=== PATIENT | female | born 1975 | race American Indian/Alaskan Native ===

== ENCOUNTER 2016-11-06 08:42 | Emergency (ER) | payer OTHER ==
[2016-11-06 08:43] VITALS: BMI 28.8
[2016-11-06 08:49] VITALS: O2SAT 100
[2016-11-06 10:00] LABS: BASO # 0.1 K/uL (0.0-0.2); BASO % 0.7 % (0.0-2.0); EOS # 0.5 K/uL (0.0-0.7); EOS % 5.9 % (0.0-4.0); HEMATOCRIT 37.6 % (34.0-47.0); LYMPH # 1.8 K/uL (1.0-4.3); LYMPH % 21.1 % (20.0-40.0); MEAN CELL VOLUME 86.4 fL (81.0-99.0); MEAN CORPUSCULAR HEMOGLOBIN 27.7 pg (27.0-31.0); MEAN PLATELET VOLUME 9.8 fL (7.2-11.7); MONO # 0.4 K/uL (0.0-0.8); RED CELL DISTRIBUTION WIDTH 13.7 % (11.5-14.5); WHITE BLOOD COUNT 8.8 K/uL (4.8-10.8)
[2016-11-06 10:07] LABS: CHLORIDE 102 mmol/L (98-107); POTASSIUM 4.2 mmol/L (3.6-5.2); SODIUM 140 mmol/L (132-148)
[2016-11-06 10:09] LABS: ALB/GLOB RATIO 1.1 (1.0-2.1); ALKALINE PHOSPHATASE 55 U/L (38-126); AST/SGOT 22 U/L (14-36); BILIRUBIN,TOTAL 0.6 mg/dL (0.2-1.3); CARBON DIOXIDE 29 mmol/L (22-30); GFR AFRICAN-AMERICAN > 60; TOTAL PROTEIN 7.5 g/dL (6.3-8.3)
[2016-11-06 10:10] LABS: ALT/SGPT 22 U/L (9-52); BLOOD UREA NITROGEN 10 mg/dL (7-17); CALCIUM 8.4 mg/dl (8.6-10.4); GLUCOSE,RANDOM 90 mg/dL (65-105)
--- NOTE | 2016-11-06 10:25 | C.PDOC ---
History Of Present Illness 41 yr old female with PMHx of bilateral breast pain, presents to the ER with bilateral breast pain for 1 week. Patient states 2 months ago, she was evaluated by breast surgeon who aspirated a cyst and was told she has polycystic breast and this is going to be a ongoing issue. Patient is also complaining of several years of intermittent lower back pain which radiates down to legs and occasionally will radiate to upper back, arms and shoulder. States the back pain is worse when its usually going to rain and is partially relived with ibuprofen. Patient reports she has never talked to her PMD about her issues. Denies fever, weight loss, chest pain, SOB, cough, nausea, vomiting , abdominal pain, dysuria, incontinence, weakness or numbness. Time Seen by Provider: 11/06/16 09:14 Chief Complaint (Nursing): Lower Extremity Problem/Injury History Per: Patient History/Exam Limitations: no limitations Onset/Duration Of Symptoms: Days (1 week) Past Medical History Reviewed: Historical Data, Nursing Documentation, Vital Signs Vital Signs: Last Vital Signs Temp 97.5 F L 11/06/16 11:42 Pulse 72 11/06/16 11:42 Resp 18 11/06/16 11:42 BP 123/83 11/06/16 11:42 Pulse Ox 100 11/06/16 11:42 - Medical History PMH: Back Problems, Migraine Family History: States: Hypertension - Social History Hx Tobacco Use: No Hx Alcohol Use: Yes Hx Substance Use: No - Immunization History Hx Influenza Vaccination: Yes Review Of Systems Except As Marked, All Systems Reviewed And Found Negative. Constitutional: Positive for: Other ((+) Bilateral breast pain ). Negative for : Fever, Weight loss Cardiovascular: Negative for: Chest Pain Respiratory: Negative for: Cough, Shortness of Breath Gastrointestinal: Negative for: Nausea, Vomiting, Abdominal Pain Genitourinary: Negative for: Dysuria, Incontinence Neurological: Negative for: Weakness, Numbness Physical Exam - Physical Exam Appears: Well, Non-toxic, No Acute Distress Skin: Warm, Dry, No Rash Head: Atraumatic, Normacephalic Oral Mucosa: Moist Chest: Symmetrical, No Tenderness, No Ecchymosis Cardiovascular: Rhythm Regular, No Murmur Respiratory: Normal Breath Sounds, No Rales, No Rhonchi, No Stridor, No Wheezing Gastrointestinal/Abdominal: Normal Exam, Soft, No Tenderness, No Guarding, No Rebound Extremity: Normal ROM, No Swelling Neurological/Psych: Oriented x3, Normal Speech, Normal Motor ED Course And Treatment - Laboratory Results Result Diagrams: 11/06/16 09:51 11/06/16 09:51 O2 Sat by Pulse Oximetry: 100 Medical Decision Making Medical Decision Making: PLAN: * CBC * CMP * Motrin PO Labs and sed rate unremarkable Results discussed with pt including need for follow up Disposition - Disposition Referrals: Shea Joshua MD [Staff Provider] - Disposition: HOME/ ROUTINE Disposition Time: 11:18 Condition: GOOD Additional Instructions: Follow up with you PCP for further evaluation Prescriptions: Ibuprofen [Motrin] 1 tab PO QID PRN #30 tab PRN Reason: .Pain or Fever Instructions: Arthralgia (ED), Chronic Back Pain (ED) Forms: Work Excuse - Clinical Impression Clinical Impression: Joint pain, Back pain - Scribe Statement The provider has reviewed the documentation as recorded by the Jodiibe Shabana Carrington Provider Attestation: All medical record entries made by the Jodiibkirby were at my direction and personally dictated by me. I have reviewed the chart and agree that the record accurately reflects my personal performance of the history, physical exam, medical decision making, and the department course for this patient. I have also personally directed, reviewed, and agree with the discharge instructions and disposition.
[2016-11-06 11:43] VITALS: BP 123/83; PULSE 72; RESP 18; TEMP 97.5
== END 2016-11-06 11:43 | disposition home or self-care (01) ==
LOC: C.ER 08:42
DX: M25.50 Pain in unspecified joint (principal); M54.9 Dorsalgia, unspecified

== ENCOUNTER 2016-12-27 22:37 | Emergency (ER) | payer OTHER ==
[2016-12-27 22:37] VITALS: BMI 28.8
--- NOTE | 2016-12-27 22:55 | C.PDOC ---
History Of Present Illness A 41 y/o F c/o right sided back pain that radiates to right leg for 4 days. Notes hx of similar episodes s/p fall 3 years prior- at the time was told "something with my discs". States she "feels it when it starts raining". Same symptoms in the past when diagnosed with sciatica. 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 Denies trauma, urinary/bowel incontinence, change in sensation, or any other complaints. Time Seen by Provider: 12/27/16 22:45 Chief Complaint (Nursing): Back Pain History Per: Patient History/Exam Limitations: no limitations Onset/Duration Of Symptoms: Days (4) Current Symptoms Are (Timing): Still Present Quality Of Discomfort: "Pain" Severity: Mild Previous Symptoms: Prior Injury Exacerbating Factor(s): Other (When it rains) Recent travel outside of the [place]: No Additional History Per: Patient Past Medical History Reviewed: Historical Data, Nursing Documentation, Vital Signs Vital Signs: Last Vital Signs Temp 98 F 12/28/16 00:15 Pulse 80 12/28/16 00:15 Resp 20 12/28/16 00:15 BP 128/72 12/28/16 00:15 Pulse Ox 98 12/28/16 00:49 - Medical History PMH: Back Problems, Migraine Denies: Chronic Kidney Disease Family History: States: Hypertension - Social History Hx Tobacco Use: No Hx Alcohol Use: Yes Hx Substance Use: No - Immunization History Hx Tetanus Toxoid Vaccination: No Hx Influenza Vaccination: Yes Hx Pneumococcal Vaccination: No Review Of Systems Except As Marked, All Systems Reviewed And Found Negative. Genitourinary: Negative for: Dysuria, Frequency, Incontinence, Hematuria Musculoskeletal: Positive for: Back Pain (Right sided), Leg Pain (Right leg, radiation) Physical Exam - Physical Exam Appears: Well, Non-toxic, Other (uncomfortable) Skin: Warm, Dry Head: Atraumatic, Normacephalic Eye(s): bilateral: Normal Inspection, EOMI Nose: Normal Oral Mucosa: Moist Neck: Normal, Normal ROM, Supple Chest: Symmetrical Respiratory: No Accessory Muscle Use Gastrointestinal/Abdominal: Normal Exam, Soft, No Tenderness Back: No CVA Tenderness, No Vertebral Tenderness, Paraspinal Tenderness (Right paralumbar and buttock) Extremity: Normal ROM, Capillary Refill (<2secs), No Deformity Extremity: Bilateral: Atraumatic, Normal Color And Temperature Neurological/Psych: Oriented x3, Normal Speech, Normal Cognition, Normal Motor, Normal Sensation, Other (NO focal deficit) Gait: Steady ED Course And Treatment O2 Sat by Pulse Oximetry: 98 (RA) Pulse Ox Interpretation: Normal Progress Note: Impression: A 41 y/o F c/o right sided back pain that radiates to right leg for 4 days. Plans: Valium, Toradol, Urine, Reassess. Offered XR, pt refused. On re-evaluationm pt is in no acute distress and is improving with the back pain. Patient is resting comfortably, is no longer having back pain, no fever, no bony tenderness, no numbness, no weakness, or abdominal pain. Pt was instructed to follow up with PMD within 1-2 days for further evaluation. Disposition - Disposition Disposition: HOME/ ROUTINE Disposition Time: 23:48 Condition: STABLE Additional Instructions: Follow up with primary medical doctor in 1-3 days without fail for further evaluation. Take medications as prescribed. Return to the emergency department at any time if symptoms persist or worsen. Prescriptions: Cyclobenzaprine [Cyclobenzaprine HCl] 10 mg PO TID #15 tab Naproxen [Naprosyn] 1 tab PO BID PRN #20 tab PRN Reason: Pain Nitrofurantoin Macrocrystals [Macrobid] 1 cap PO BID #10 cap Instructions: Sciatica (ED) Forms: [facility] (Azeri) - Clinical Impression Clinical Impression: Sciatica - Scribe Statement The provider has reviewed the documentation as recorded by the Scribe Yesica fritz All medical record entries made by the Jodiibkirby were at my direction and personally dictated by me. I have reviewed the chart and agree that the record accurately reflects my personal performance of the history, physical exam, medical decision making, and the department course for this patient. I have also personally directed, reviewed, and agree with the discharge instructions and disposition.
[2016-12-27 22:58] VITALS: PULSE 80; RESP 20; TEMP 98
[2016-12-27 23:44] LABS: RBC URINE 4 /hpf (0-3); URINE BILIRUBIN NEGATIVE (NEGATIVE); URINE BLOOD NEGATIVE (NEGATIVE); URINE COLOR Yellow (YELLOW); URINE GLUCOSE (UA) NORMAL (Normal); URINE KETONE NEGATIVE (NEGATIVE); URINE LEUKOCYTE ESTERASE 1+ Leu/uL (Negative); URINE PROTEIN NEGATIVE (NEGATIVE); URINE UROBILINOGEN NORMAL mg/dL (0.2-1.0); WBC URINE 11 /hpf (0-5)
[2016-12-28 00:16] VITALS: BP 128/72
[2016-12-28 00:31] VITALS: O2SAT 98
== END 2016-12-28 00:15 | disposition home or self-care (01) ==
LOC: C.ER 22:37
DX: M54.41 Lumbago with sciatica, right side (principal)
CPT/HCPCS: 81001; 84703; 87086; 96372; 99282; J1885

== ENCOUNTER 2017-05-09 00:13 | Emergency (ER) | payer OTHER ==
[2017-05-09 00:13] VITALS: BMI 28.8
[2017-05-09 00:20] VITALS: RESP 18; O2SAT 100
[2017-05-09] MEDS ORDERED: Aspirin 325 mg EC Tablets PO STA (01:01)
--- NOTE | 2017-05-09 01:01 | C.PDOC ---
History Of Present Illness Pt complaining of worsening chest pain over the last 2-3 days. No f/c/n/v. Has had a non productive cough. Pain, which is sharp and reproducible, worsens with deep inspiration, movement and palpations. Speaking in complete sentences, Time Seen by Provider: 05/09/17 00:41 Chief Complaint (Nursing): Chest Pain History Per: Patient History/Exam Limitations: no limitations Onset/Duration Of Symptoms: Days (2) Current Symptoms Are (Timing): Still Present Context: Other Severity: Moderate Pain Scale Rating Of: 5 Quality: Sharp, "Pain" Associated Symptoms: denies: Nausea, Dyspnea Exacerbating Factors: Movement, Deep Breathing Alleviating Factors: None Recent travel outside of the [place]: No Additional History Per: Patient Past Medical History Reviewed: Historical Data, Nursing Documentation, Vital Signs Vital Signs: Last Vital Signs Temp 98 F 05/09/17 00:16 Pulse 102 H 05/09/17 00:16 Resp 18 05/09/17 00:16 BP 135/85 05/09/17 00:16 Pulse Ox 100 05/09/17 01:17 - Medical History PMH: Back Problems, Migraine Denies: Chronic Kidney Disease Family History: States: No Known Family Hx, Hypertension - Social History Hx Tobacco Use: No Hx Alcohol Use: Yes Hx Substance Use: No - Immunization History Hx Tetanus Toxoid Vaccination: No Hx Influenza Vaccination: Yes Hx Pneumococcal Vaccination: No Review Of Systems Constitutional: Negative for: Fever, Chills Eyes: Negative for: Redness ENT: Negative for: Throat Pain Cardiovascular: Positive for: Chest Pain Respiratory: Negative for: Shortness of Breath Gastrointestinal: Negative for: Nausea, Vomiting Genitourinary: Negative for: Dysuria Musculoskeletal: Negative for: Back Pain Skin: Negative for: Rash Neurological: Negative for: Weakness Psych: Negative for: Anxiety Physical Exam - Physical Exam Appears: Non-toxic Skin: Warm, Dry Head: Normacephalic Eye(s): bilateral: Normal Inspection Oral Mucosa: Moist Throat: No Erythema Neck: Trachea Midline, Supple Chest: Symmetrical, Tenderness (sternal, reproducible) Cardiovascular: Rhythm Regular Respiratory: No Rales, No Rhonchi, No Wheezing Gastrointestinal/Abdominal: Soft, No Tenderness, No Distention Back: Normal Inspection Extremity: Normal ROM Extremity: Bilateral: Atraumatic, Normal Color And Temperature, Normal ROM Pulses: Left Dorsalis Pedis: Normal, Right Dorsalis Pedis: Normal Neurological/Psych: Oriented x3, Normal Speech, Normal Cognition Gait: Steady ED Course And Treatment - Laboratory Results Result Diagrams: 05/09/17 01:21 05/09/17 01:21 ECG: Interpreted By Me, Viewed By Me ECG Rhythm: Sinus Rhythm (100), Nonspecific Changes O2 Sat by Pulse Oximetry: 100 Pulse Ox Interpretation: Normal - Radiology CXR: Interpreted by Me, Viewed By Me CXR Interpretation: No: Infiltrates, Fracture, Pnemothorax Reevaluation Time: 03:35 Reassessment Condition: Improved Disposition Counseled Patient/Family Regarding: Studies Performed, Diagnosis, Need For Followup, Rx Given - Disposition Referrals: Non [facility] Provider, [Primary Care Provider] - Disposition: HOME/ ROUTINE Disposition Time: 00:35 Condition: FAIR Prescriptions: Naproxen [Naprosyn] 1 tab PO BID PRN #25 tab PRN Reason: Pain Instructions: Costochondritis (ED) Forms: [facility] (Croatian), Work Excuse - Clinical Impression Clinical Impression: Costochondral chest pain
[2017-05-09] MEDS ORDERED: Aspirin 325 mg EC Tablets PO ONE (01:15)
[2017-05-09 01:32] LABS: URINE COLOR YELLOW (YELLOW)
[2017-05-09 01:32] LABS: BASO # 0.1 K/uL (0.0-0.2); BASO % 0.5 % (0.0-2.0); EOS # 0.6 K/uL (0.0-0.7); EOS % 5.7 % (0.0-4.0); HEMATOCRIT 34.8 % (34.0-47.0); INR 1.1; LYMPH # 2.3 K/uL (1.0-4.3); LYMPH % 21.7 % (20.0-40.0); MEAN CELL VOLUME 86.7 fL (81.0-99.0); MEAN CORPUSCULAR HEMOGLOBIN 27.9 pg (27.0-31.0); MEAN CORPUSCULAR HGB CONC 32.2 g/dL (33.0-37.0); MEAN PLATELET VOLUME 9.6 fL (7.2-11.7); MONO # 0.5 K/uL (0.0-0.8); MONO % 4.9 % (0.0-10.0); RED CELL DISTRIBUTION WIDTH 13.7 % (11.5-14.5); WHITE BLOOD COUNT 10.5 K/uL (4.8-10.8)
[2017-05-09 01:33] LABS: RBC URINE 3 /hpf (0-3); URINE BILIRUBIN NEGATIVE (NEGATIVE); URINE BLOOD TRACE-INTACT (NEGATIVE); URINE GLUCOSE (UA) NEGATIVE (Normal); URINE KETONE NEGATIVE (NEGATIVE); URINE LEUKOCYTE ESTERASE NEGATIVE Leu/uL (Negative); URINE PROTEIN NEGATIVE (NEGATIVE); URINE UROBILINOGEN 0.2 mg/dL (0.2-1.0)
[2017-05-09 01:34] LABS: URINE BACTERIA FEW (<OCC); WBC URINE 4 /hpf (0-5)
[2017-05-09 01:45] LABS: ALB/GLOB RATIO 1.3 (1.0-2.1); ALKALINE PHOSPHATASE 56 U/L (38-126); ALT/SGPT 34 U/L (9-52); AST/SGOT 24 U/L (14-36); BILIRUBIN,TOTAL 0.4 mg/dL (0.2-1.3); BLOOD UREA NITROGEN 11 mg/dL (7-17); CALCIUM 8.2 mg/dl (8.6-10.4); CARBON DIOXIDE 26 mmol/L (22-30); CHLORIDE 104 mmol/L (98-107); GFR AFRICAN-AMERICAN > 60; GLUCOSE,RANDOM 93 mg/dL (65-105); POTASSIUM 3.7 mmol/L (3.6-5.2); SODIUM 140 mmol/L (132-148); TOTAL PROTEIN 6.9 g/dL (6.3-8.3)
--- NOTE | 2017-05-09 03:22 | CT ---
EXAM: CT Chest Without Intravenous Contrast CLINICAL HISTORY: 41 years old, female; Pain; Chest pain; Additional info: Chest pain, sternal region, HX of leftbreast mass TECHNIQUE: Axial computed tomography images of the chest without intravenous contrast. All CT scans at this facility use one or more dose reduction techniques, viz.: automated exposure control; ma/kV adjustment per patient size (including targeted exams where dose is matched to indication; i.e. head); or iterative reconstruction technique. Coronal and sagittal reformatted images were created and reviewed. COMPARISON: No relevant prior studies available. FINDINGS: Limitations: Lack of intravenous contrast. Lungs: No consolidation. Pleural space: No pneumothorax. No significant effusion. Heart: No cardiomegaly. No significant pericardial effusion. Bones/joints: No acute fracture. Soft tissues: Unremarkable. Vasculature: Unremarkable. No aneurysm. Lymph nodes: No pathologically enlarged lymph nodes. IMPRESSION: 1.No acute findings.
[2017-05-09 03:44] VITALS: BP 101/67; PULSE 74; TEMP 97.9
--- NOTE | 2017-05-09 10:47 | RAD ---
PROCEDURE: CHEST RADIOGRAPH, 1 VIEW HISTORY: chest pain COMPARISON: None available. FINDINGS: LUNGS: Clear. PLEURA: No pneumothorax or pleural fluid seen. CARDIOVASCULAR: Normal. OSSEOUS STRUCTURES: No significant abnormalities. VISUALIZED UPPER ABDOMEN: Normal. OTHER FINDINGS: None. IMPRESSION: No active disease.
== END 2017-05-09 03:47 | disposition home or self-care (01) ==
LOC: SUPCPDRO 00:13 → C.ER 00:13
DX: R07.89 Other chest pain (principal)
CPT/HCPCS: 71010; 71250; 80053; 81001; 83880; 84484; 84703; 85025; 85610; 96374; 99285; J1885

== ENCOUNTER 2018-03-31 21:20 | Emergency (ER) | payer OTHER ==
[2018-03-31 21:20] VITALS: BMI 28.8
[2018-03-31 21:32] VITALS: BP 110/70; PULSE 70; RESP 14; TEMP 97.7; O2SAT 98
--- NOTE | 2018-03-31 23:08 | C.PDOC ---
History Of Present Illness 42 year old female with PMHx of sciatica presents to the ED c/o lower back pain radiating to her right buttock and right thigh since yesterday. Patient reports symptoms feel similar to previous sciatica pain. Patient states she took OTC Tylenol with no relief to symptoms. Patient denies fever, chills, injury, fall, trauma, weakness, numbness, bowel incontinence, saddle anesthesia. Time Seen by Provider: 03/31/18 22:18 Chief Complaint (Nursing): Back Pain History Per: Patient History/Exam Limitations: no limitations Onset/Duration Of Symptoms: Days Current Symptoms Are (Timing): Still Present Quality Of Discomfort: "Pain" Previous Symptoms: Back Pain Associated Symptoms: None Recent travel outside of the [place]: No Additional History Per: Patient Past Medical History Reviewed: Historical Data, Nursing Documentation, Vital Signs Vital Signs: Last Vital Signs Temp 97.7 F 03/31/18 21:30 Pulse 70 03/31/18 21:30 Resp 14 03/31/18 21:30 BP 110/70 03/31/18 21:30 Pulse Ox 98 03/31/18 21:30 - Medical History PMH: Back Problems, Migraine Denies: Chronic Kidney Disease Surgical History: No Surg Hx Family History: States: Hypertension - Social History Hx Tobacco Use: No Hx Alcohol Use: Yes Hx Substance Use: No - Immunization History Hx Tetanus Toxoid Vaccination: No Hx Influenza Vaccination: Yes Hx Pneumococcal Vaccination: No Review Of Systems Constitutional: Negative for: Fever, Chills Cardiovascular: Negative for: Chest Pain Respiratory: Negative for: Shortness of Breath Gastrointestinal: Negative for: Nausea, Vomiting, Abdominal Pain Genitourinary: Negative for: Dysuria, Incontinence Musculoskeletal: Positive for: Back Pain Skin: Negative for: Rash Neurological: Negative for: Weakness, Numbness Physical Exam - Physical Exam Appears: Non-toxic, No Acute Distress Skin: Normal Color, Warm, Dry Head: Atraumatic, Normacephalic Eye(s): bilateral: Normal Inspection Neck: Normal ROM, Supple Chest: Symmetrical Cardiovascular: Rhythm Regular Respiratory: Normal Breath Sounds, No Rales, No Rhonchi, No Wheezing Gastrointestinal/Abdominal: Soft, No Tenderness, No Guarding, No Rebound Back: Paraspinal Tenderness (right paralumbar) Extremity: Normal ROM, No Tenderness, No Swelling Neurological/Psych: Oriented x3, Normal Speech, Normal Cognition Gait: Steady ED Course And Treatment O2 Sat by Pulse Oximetry: 98 (ON RA) Pulse Ox Interpretation: Normal Progress Note: Plan: - Flexeril 10 mg PO. - Toradol 30 mg IM. On reassessment, patient is resting comfortably, with improvement of back pain. Patient remains afebrile, with no bony tenderness, extremity numbness or weakne ss, or abdominal pain. Patient is ambulatory in the emergency department with no signs of discomfort. Patient was advised to follow up with physician/clinic in 1-2 days. 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 - Scribe Statement The provider has reviewed the documentation as recorded by the Scribe Jose Daniel Jung All medical record entries made by the Jodiibkirby were at my direction and personally dictated by me. I have reviewed the chart and agree that the record accurately reflects my personal performance of the history, physical exam, medical decision making, and the department course for this patient. I have also personally directed, reviewed, and agree with the discharge instructions and disposition.
== END 2018-03-31 23:13 | disposition home or self-care (01) ==
LOC: C.ER 21:20
DX: M54.30 Sciatica, unspecified side (principal)
CPT/HCPCS: 96372; 99283; J1885

== ENCOUNTER 2018-04-14 16:09 | Emergency (ER) | payer OTHER ==
[2018-04-14 16:09] VITALS: BMI 28.8
--- NOTE | 2018-04-14 16:48 | C.PDOC ---
History Of Present Illness 42 y/o female presents to the ED complaining of right toe pain, s/p accidentally jamming toes against the bed frame 3 days ago. She notes pain is worse to the 4th and 5th toes, causing her to be uncomfortable in her work boots. States she has tried soaking the toes without relief. Otherwise she denies any bruising, numbness, tingling, or focal weakness. She is able to ambulate with pain. No other injuries. Time Seen by Provider: 04/14/18 16:22 Chief Complaint (Nursing): Lower Extremity Problem/Injury History Per: Patient History/Exam Limitations: no limitations Onset/Duration Of Symptoms: Days Current Symptoms Are (Timing): Still Present Past Medical History Reviewed: Historical Data, Nursing Documentation, Vital Signs Vital Signs: Last Vital Signs Temp 98.7 F 04/14/18 16:11 Pulse 89 04/14/18 16:11 Resp 18 04/14/18 16:11 BP 135/82 04/14/18 16:11 Pulse Ox 100 04/14/18 16:11 - Medical History PMH: Back Problems, Migraine Denies: Chronic Kidney Disease Family History: States: Hypertension - Social History Hx Tobacco Use: No Hx Alcohol Use: Yes Hx Substance Use: No - Immunization History Hx Tetanus Toxoid Vaccination: No Hx Influenza Vaccination: No Hx Pneumococcal Vaccination: No Review Of Systems Constitutional: Negative for: Fever Musculoskeletal: Positive for: Foot Pain (to 4th and 5th right toes) Skin: Negative for: Rash, Bruising Neurological: Negative for: Weakness, Numbness, Incoordination Physical Exam - Physical Exam Appears: Well, Non-toxic, No Acute Distress Skin: Warm, Dry, No Rash Head: Atraumatic, Normacephalic Eye(s): bilateral: Normal Inspection Oral Mucosa: Moist Neck: Normal ROM Extremity: Normal ROM, Tenderness (over the right 3rd, 4th, and 5th metatarsals, and 5th toe), Capillary Refill (less than 2 sec), No Deformity, Swelling (mild swelling to right 5th toe) Pulses: Left Dorsalis Pedis: Normal, Right Dorsalis Pedis: Normal Neurological/Psych: Oriented x3, Normal Speech, Normal Motor, Normal Sensation, Other (No focal deficits) Gait: Steady ED Course And Treatment O2 Sat by Pulse Oximetry: 100 (RA) Pulse Ox Interpretation: Normal Medical Decision Making Medical Decision Making: Plan: --Right foot x-ray --Tylenol PO Foot xrays show (+) 5th proximal phalanx. Toes were nel taped and Ortho shoe applied. Disposition - Disposition Referrals: Ana Cristina Gamble DPM [Staff Provider] - [facility] [Outside] Disposition: HOME/ ROUTINE Disposition Time: 17:31 Condition: STABLE Additional Instructions: Follow up with the [facility] within 1-2 days without fail. Return if worsened. 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 - Scribe Statement The provider has reviewed the documentation as recorded by the Scribe (Amna Smith) All medical record entries made by the Scribe were at my direction and personally dictated by me. I have reviewed the chart and agree that the record accurately reflects my personal performance of the history, physical exam, medical decision making, and the department course for this patient. I have also personally directed, reviewed, and agree with the discharge instructions and disposition.
--- NOTE | 2018-04-14 18:01 | RAD ---
Date of service: 04/14/2018 PROCEDURE: Right Foot Radiographs. HISTORY: PAIN AND SWELLING OVER 3RD-5TH TOES AND MTP COMPARISON: None. FINDINGS: BONES: There appears to be minimally displaced fractured distal aspect proximal phalanx 5th toe with mild surrounding soft tissue swelling. JOINTS: Mild hallux valgus deformity with degenerative changes 1st MTP joint SOFT TISSUES: Normal. OTHER FINDINGS: None. IMPRESSION: minimally displaced fractured distal aspect proximal phalanx 5th toe with mild surrounding soft tissue swelling. 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
[2018-04-14 18:06] VITALS: BP 128/78; PULSE 82; RESP 16; TEMP 98.2; O2SAT 98
== END 2018-04-14 18:05 | disposition home or self-care (01) ==
LOC: C.ER 16:09
DX: S92.511A Displaced fracture of proximal phalanx of right lesser toe(s), initial encounter for closed fracture (principal); W22.03XA Walked into furniture, initial encounter